=== PATIENT | male | born 1930 | race Caucasian/White ===

== ENCOUNTER 2016-10-15 17:25 | Inpatient (IN) | payer MEDICARE ==
[~2016-10-15] VITALS: Ht 182.9 cm; Wt 118.7 kg
[~2016-10-15 17:25] MED LIST: AMLO5TAB2 PO; ASPI-973 PO; CHOL3000 PO; FERR325T39 PO; INSLIS SUBQ; INSU100V7 SUBQ; LEVO88TA4 PO; MULT-1018 PO; PRAV10TA2 PO; PROB500T8 PO; ZYL100 PO
[2016-10-15 17:39] VITALS: BP 178/97; PULSE 116; RESP 20; O2SAT 93
--- NOTE | 2016-10-15 18:22 | ED.REPORT ---
HPI-Abd Pain M 40 and Over Date of Service Oct 15, 2016 ED Provider: Davi Coffey PA-C Sina is an 78-year-old male being treated for prostate cancer who presents with a chief complaint of lower abdominal pain. He states the pain began shortly after he ate his lunch today. His been increasing since then. He locates the pain in the lower quadrants. He reports a one-week history of constipation with only minimal hard stools. He attempted a water enema prior to presentation at the hospital with no result. No history of gastrointestinal disease. Admits chills. Denies vomiting, urinary frequency, urgency, dysuria, hematuria, testicular pain, fevers, melena, hematochezia. chest pain, difficulty breathing, upper respiratory symptoms. Denies history of abdominal surgeries. Nursing Notes Stated Complaint: STOMACH PAIN Chief Complaint: Male Abdominal Pain Nursing Notes Reviewed: Yes Allergies: Coded Allergies: No Known Allergies (Unverified , 09/21/15) Scheduled Allopurinol (Allopurinol) 100 Mg Tablet 100 MG PO BID Amlodipine (Amlodipine) 5 Mg Tablet 5 MG PO DAILY Aspirin (Aspirin) 81 Mg Tablet 81 MG PO DAILY Cholecalciferol (Vitamin D3) (Vitamin D3) 3,000 Unit Tablet 3,000 UNIT PO DAILY Ferrous Sulfate (Iron) 325 Mg Tablet 325 MG PO DAILY Insulin Glargine (Lantus U100 Insulin Vial) 100 Unit/Ml Vial 25 UNIT SUBQ HS Insulin Human Lispro (HumaLOG U100 Insulin Vial) 100 Unit/Ml Unit 8 UNIT SUBQ TIDAC Check blood sugars before meals and at bedtime. Use correction factor only before meals. Blood Sugar Lispro Correction: <151, 0 units; 151-175, 1 unit; 176-200, 2 units; 201-225, 3 units; 226-250, 4 units; 251-275, 5 units; 276-300 , 6 units; 301-325, 7 units; 326-350, 8 units; 351-375, 9 units; 376-400, 10 units; >400, 12 units. Levothyroxine (Levothyroxine) 88 Mcg Tablet 88 MCG PO DAILY Multivitamin (Multi Vitamin Daily) 1 Each Tablet 1 EACH PO DAILY Pravastatin (Pravastatin) 10 Mg Tablet 5 MG PO HS Probenecid (Probenecid) 500 Mg Tablet 500 MG PO BID General Time Seen by MD: 17:46 Chief Complaint Abdominal pain Sudden in Onset?: No Past Medical History Past Medical History Hypertension CVA Diverticulitis Hx of kidney stones Thyroid disease Gout Type II adult onset diabetes Past Surgical History Hemorrhoidectomy TUMT Spine surgery Sinus surgery Biceps repair Family History noncontributory Smoking History Former Smoker Social History Alcohol Use: Denies alcohol use Drug Use: Denies drug use Other Social History: Good social support, , Local resident Ambulatory Status Independent Review of Systems Review of Systems Note: Negative unless stated otherwise in history of present illness Physical Exam General: Well appearing, well developed, well nourished, no acute distress. Head: Atraumatic, normocephalic. Eyes: No scleral icterus or injection. No discharge. Vision grossly intact. ENT: Voice clear, hearing grossly intact. Respiratory: Regular rate and rhythm. Breath sounds present, clear to auscultation and equal bilaterally. No respiratory distress. No increased work of breathing, speaks in complete sentences. Cardiovascular: Regular rate and rhythm, without murmur, gallop or rub. No pedal edema. Gastrointestinal: Distended abdomen mildly tender in upper quadrants and moderately tender in lower quadrants without guarding or rebound. Bowel sounds hypoactive Skin: Warm and dry. Neurological: Grossly nonfocal. Psychological: Alert and oriented. Speech appropriate, linear and logical. Behavior appropriate. Initial Vital Signs Vital Signs (First) Date Time Temp Pulse Resp B/P Pulse Ox O2 Delivery O2 Flow Rate FiO2 10/15/16 17:39 36.2 116 20 178/97 93 Room Air Initial VS: Reviewed, Vital signs abnormal (tachycardia) Interpretation & Diagnostics Interpretation & Diagnostics: Leukocytosis at 17.2 with a left shift Mildly elevated glucose at 152 Lab Results Interpretation Result Diagram: 10/15/168 10/15/168 Test 10/15/16 18:38 10/15/16 19:50 10/15/16 20:43 White Blood Count 17.2th/mm3 (3.8-10.1) Red Blood Count 4.81mil/mm3 (4.40-5.80) Hemoglobin 14.1g/dL (13.8-17.2) Hematocrit 43.2% (41.0-50.0) Mean Corpuscular Volume 89.8fL (81-100) Mean Corpuscular Hemoglobin 29.3pg (27.0-35.0) Mean Corpuscular Hemoglobin Concent 32.6% (32.0-37.0) Red Cell Distribution Width 13.6% (12.3-15.4) Platelet Count 167bil/L (150-400) Neutrophils (%) (Auto) 83.3% (40-74) Lymphocytes (%) (Auto) 8.5% (14-46) Monocytes (%) (Auto) 7.2% (4-12) Eosinophils (%) (Auto) 0.7% (0-5) Basophils (%) (Auto) 0.1% (0-3) Sodium Level 139mEq/L (134-144) Potassium Level 4.6mEq/L (3.5-5.2) Chloride Level 99mEq/L (97-108) Carbon Dioxide Level 23mmol/L (18-29) Blood Urea Nitrogen 23mg/dL (8-27) Creatinine 1.27mg/dL (0.76-1.27) Estimat Glomerular Filtration Rate 57mL/min (>59) Glucose Level 152mg/dL (60-99) Calcium Level 9.7mg/dL (8.5-10.1) Total Bilirubin 0.4mg/dL (0.0-1.2) Aspartate Amino Transf (AST/SGOT) 31U/L (0-50) Alanine Aminotransferase (ALT/SGPT) 19U/L (0-44) Alkaline Phosphatase 73U/L (25-160) Total Protein 7.8g/dL (6.4-8.4) Albumin 4.1g/dL (3.4-5.0) Hold Urine Received (Received) Lab Results Interpretation: PROCEDURE: CT ABDOMEN AND PELVIS WITH CONTRAST (PNL-7102) INDICATIONS: lower abdominal pain and tenderness IMPRESSION: Acute sigmoid diverticulitis. No abscess. Bilateral renal cysts as before. 9 mm nonobstructing proximal left ureteral calculus. Nonobstructing bilateral nephrolithiasis. Normal appendix. Re-Eval/Medical Decision Med Decision/Clinical Course 78-year-old male with chief complaint of lower abdominal pain that began around lunchtime today. Nontoxic-appearing but significantly tender in the lower abdominal quadrants, leukocytosis of 17.5 with left shift, tachycardic. CT reveals diverticulitis without abscess. Considering that the patient is unsteady on his feet and unable to stand long enough to urinate, the family and I feel it is reasonable to pursue admission. I discussed this with the hospitalist who accepts the admission Re-Evaluation/Progress Note: Patient continues to complain of sharp abdominal pains. Consultation : Consulted With: Hospitalist Call Returned at: 20:19 Lunchroom Monitor: Accepts admit Discharge & Departure Primary Impression: Diverticulitis Diverticulitis site: large intestine Diverticulitis bleeding: without bleeding Diverticulitis complication: without perforation or abscess Qualified Code: K57.32 - Diverticulitis of large intestine without perforation or abscess without bleeding Disposition: ADMITTED TO HOSPITAL Vital Signs - All Vital Signs Date Time Temp Pulse Resp B/P Pulse Ox O2 Delivery O2 Flow Rate FiO2 10/15/16 20:28 38.6 114 18 164/87 93 Room Air 10/15/16 17:39 36.2 116 20 178/97 93 Room Air Referrals: Obie Dior MD (PCP) EDSupervising Provider for APC: Chin Hernandez MD copies to: Obie Dior MD, Seth PA-C Oct 15, 2016 18:22
[2016-10-15 19:00] LABS: BASOPHILS % (AUTO) 0.1 % (0-3); EOSINOPHILS % (AUTO) 0.7 % (0-5); MONOCYTES % (AUTO) 7.2 % (4-12); Mean Corpuscular Hemoglobin 29.3 pg (27.0-35.0); Mean Corpuscular Volume 89.8 fL (81-100); NEUTROPHILS % (AUTO) 83.3 % (40-74); Platelet Count 167 bil/L (150-400)
--- NOTE | 2016-10-15 20:05 | DRSVH ---
PROCEDURE: CT ABDOMEN AND PELVIS WITH CONTRAST (PNL-7102) INDICATIONS: lower abdominal pain and tenderness TECHNIQUE: After the administration of intravenous contrast, 5 mm thick sections acquired from the diaphragm to the symphysis. 5 mm coronal and sagittal reformats were acquired. For radiation dose reduction, the following was used: automated exposure control, adjustment of mA and/or kV according to patient felipe rothman. COMPARISON: [facility], CT, KUB - CT ([facility] 11/03/2012, 11:03. [facility], CT, ABD/PELVIS W/CON ([facility]), 08/20/2006, 16:25. FINDINGS: Image quality: Excellent. ABDOMEN: Lung bases: Lung bases are clear. Heart size is normal. Solid organs: Liver and spleen are normal in size and enhancement. Gallbladder unremarkable. Bilia ry system is non dilated. Pancreas enhances normally. No adrenal nodules. Bilateral renal cysts, so me of which demonstrate peripheral rim calcification. The largest measures 7.1 cm and the left kidney and demonstrates simple appearance. Bilateral less than 5 mm nephrolithiasis without evidence of uri nary obstruction. There is a 9 mm left proximal ureteral calculus seen in the proximal left ureter on image 40 series 2. No ureteral dilatation is seen. Peritoneum and bowel: Bowel loops demonstrate normal wall thickness and caliber. No free fluid or a ir. Numerous scattered colonic diverticula with mild long segment wall thickening in the sigmoid col on on image 67 series 2. There is mild adjacent fat stranding. Rectum decompressed. No abscess. Appen alonso appears normal. Nodes and vessels: No retroperitoneal or mesenteric adenopathy by size criteria. 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 IVC unremarkable Miscellaneous: No ventral hernias. PELVIS: Genitourinary: Bladder wall thickness is normal. Miscellaneous: No inguinal hernias or adenopathy. Bones: No suspicious bony lesions. No vertebral body compression fractures. IMPRESSION: Acute sigmoid diverticulitis. No abscess. Bilateral renal cysts as before. 9 mm nonobstructing proximal left ureteral calculus. Nonobstructing bilateral nephrolithiasis. Normal appendix. Dictated by: Lavon Leigh M.D. on 10/15/2016 at 19:53 Approved by: Lavon Leigh M.D. on 10/15/2016 at 20:05
[2016-10-15] MEDS ORDERED: Ciprofloxacin Inj 500 MG in IV Premix 1 EACH IV ONE (20:20)
[2016-10-15] MEDS ORDERED: metroNIDAZOLE Inj 500 MG in IV Premix 1 EACH IV ONE (20:20)
[2016-10-15 20:28] VITALS: BP 164/87; PULSE 114; RESP 18; O2SAT 93
[2016-10-15] MEDS ORDERED: Ciprofloxacin Inj 400 MG in IV Premix 1 EACH IV ONE (20:33)
[2016-10-15] MEDS ORDERED: INSU100I13 SUBQ (21:01)
[2016-10-15] MEDS ORDERED: POTA10TA19 PO (21:01)
[2016-10-15] MEDS ORDERED: FINA5TAB9 PO (21:01)
[2016-10-15] MEDS ORDERED: CALC1TAB91 PO (21:01)
[2016-10-15] MEDS ORDERED: LACT1CAP65 PO (21:01)
[2016-10-15] MEDS ORDERED: INSU100I18 SUBQ (21:01)
[2016-10-15] MEDS ORDERED: Levofloxacin 750 mg/150 mL D5W IV ONE (21:15)
[2016-10-15] MEDS ORDERED: Alum-Mag Hydrox-Simeth 30 mL Suspension PO PRN (21:25)
[2016-10-15] MEDS ORDERED: Polyethylene Glycol (PEG) 17 Gm Powder PO PRN (21:25)
[2016-10-15] MEDS ORDERED: Ondansetron 2 mg/mL 2 mL Inj IVPUSH PRN (21:25)
[2016-10-15 21:44] VITALS: BP 148/78; PULSE 114; RESP 18; O2SAT 91
[2016-10-15 21:44] LABS: APPEARANCE,URINE CLEAR (CLEAR,HAZY); COLOR,URINE YELLOW (YELLOW)
[2016-10-15 21:45] LABS: OCCULT BLOOD,URINE NEGATIVE (NEGATIVE); UROBILINOGEN,URINE NORMAL (NORMAL)
[2016-10-15] MEDS ORDERED: Glucose 40% Oral Gel 15 Gm Tube PO PRN (21:50)
[2016-10-15] MEDS: Insulin LISPRO 300 Unit/3 mL Inj SUBQ SCH (22:00)
[2016-10-15 22:01] VITALS: BP 157/82; PULSE 110; RESP 18; O2SAT 91
[2016-10-15 22:20] LABS: Magnesium 1.9 mg/dL (1.6-2.6); Phosphorus 3.9 mg/dL (2.5-4.9)
--- NOTE | 2016-10-15 22:40 | PCM.HPMED ---
Subjective Date of Service Oct 15, 2016 Primary Provider: Admitting Physician: Victorino Watson MD Primary Care Physician: Obie Dior MD Attending Physician: Victorino Watson MD Admit Status: From the Emergency Department Chief Complaint: abdominal pain and weakness History of Present Illness: 86 yr old male patient presented to the ER with complaint of abdominal pain and weakness. Patient reports that today after lunch with his family he began feeling weak and tired and went to take a nap, but was unable to rest due to abdominal pain and bloating. Patient states that he felt his abdomen was bloated and he needed to loosen his belt and was having abdominal pain. Patient reports that he attempted to go to the restroom twice, and had 2 very small bowel movements which neither relieved or worsened his abdominal pain. Patient denies any fever, nausea, chills, vomiting until he arrived in the ER. Patient states that while in the ER he began feeling feverish, nauseous and had worsening pain. Patient reports that he did feel quite weak while at home. Patient states that he was seen in the urgent care prior to coming to the ER. Patient reports lower quadrant abdominal pain that he describes a sharp without radiation. Patient also reports dysuria but denies any hematuria or increased frequency of urination. Patient denies any hematochezia or melena. Patient denies any chest pain, shortness of breath, headache or chills. Patient denies any recent history of constipation or diarrhea. States he has never experienced anything like this previously. While in the ER patient had a temperature 38.6, pulse 114, respiratory rate of 18, blood pressure 164/87, pulse ox 93 on room air. In the ER labs were drawn, patient had a WBC of 17.2 Review of Systems: A comprehensive review of systems was conducted with the patient and found to be negative except as above in the History of Present Illness. Allergies Coded Allergies: No Known Allergies (Unverified , 09/21/15) Home Medications Allopurinol 100 mg a day Amlodipine 5 mg a day Finasteride 5 mg a day Levothyroxine 0.088 mg a day Potassium citrate 10 mEq, 3 tablets twice a day Pravastatin 10 mg once a day Probenecid 500 mg, 2 tablets twice a day Aspirin 81 mg daily Senior multivitamin one tablet daily Vitamin D3 3000 international units daily Erich-Citrate probiotic Insulin Humalog 0-5 units as needed Lantus 5-10 units at bedtime PMH Diabetes mellitus type II Prostate cancer Kidney stones Hypertension Hyperlipidemia Peripheral neuropathy TIA Surgical History Hemorrhoidectomy Lithotripsy C Sinus surgery Laminectomy Discectomy Bladder stone removal TURP Social History Hx Alcohol Use: No Hx Substance Use: No Hx Tobacco Use: Yes Smoking Status: Former Smoker (quit over 60 years ago) Living Arrangement: with Family Exam Vital Signs Vital Sign - Last Date Time Temp Pulse Resp B/P Pulse Ox O2 Delivery O2 Flow Rate FiO2 10/15/16 21:44 38.9 114 18 148/78 91 10/15/16 20:28 Room Air Exam General: No acute distress, well-developed, well-nourished, appropriately interactive HEENT: Normocephalic, atraumatic. External ears without defect. Pupils equal, round, and reactive to light and accommodation. Moist conjunctivae. Oropharynx with moist mucosa. Neck: Supple with full range of motion.No lymphadenopathy Cardiovascular: Tachycardic with regular rhythm and no murmurs, rubs, or gallops appreciated Pulmonary: Clear to auscultation bilaterally with no crackles, wheezes, or rhonchi. Normal respiratory effort with no use of accessory muscles. Abdomen: Tenderness to palpation of left upper and lower quadrant, mild tenderness nash-umbilical region. Bowel tones present. Soft,nondistended. Extremities: Trace to 1+ pitting edema bilateral lower extremities to mid koch. No clubbing, cyanosis appreciated. Skin: Normal temperature, turgor, and texture; no rash, ulcers, or subcutaneous nodules appreciated. Psychiatric: Normal mood and affect. Alert and oriented to person, place, and time. Lab and Diagnostics Result Diagram: 10/15/16183710/15/161837 X-Rays, CTs and MRIs PROCEDURE: CT ABDOMEN AND PELVIS WITH CONTRAST (PNL-7102) INDICATIONS: lower abdominal pain and tenderness TECHNIQUE: After the administration of intravenous contrast, 5 mm thick sections acquired from the diaphragm to the symphysis. 5 mm coronal and sagittal reformats were acquired. For radiation dose reduction, the following was used: automated exposure control, adjustment of mA and/or kV according to patient size. COMPARISON: [facility], CT, KUB - CT ([facility]), 11/03/2012, 11:03. [facility], CT, ABD/PELVIS W/CON ([facility]), 08/20/2006, 16:25. FINDINGS: Image quality: Excellent. ABDOMEN: Lung bases: Lung bases are clear. Heart size is normal. Solid organs: Liver and spleen are normal in size and enhancement. Gallbladder unremarkable. Biliary system is non dilated. Pancreas enhances normally. No adrenal nodules. Bilateral renal cysts, some of which demonstrate peripheral rim calcification. The largest measures 7.1 cm and the left kidney and demonstrates simple appearance. Bilateral less than 5 mm nephrolithiasis without evidence of urinary obstruction. There is a 9 mm left proximal ureteral calculus seen in the proximal left ureter on image 40 series 2. No ureteral dilatation is seen. Peritoneum and bowel: Bowel loops demonstrate normal wall thickness and caliber. No free fluid or air. Numerous scattered colonic diverticula with mild long segment wall thickening in the sigmoid colon on image 67 series 2. There is mild adjacent fat stranding. Rectum decompressed. No abscess. Appendix appears normal. Nodes and vessels: No retroperitoneal or mesenteric adenopathy by size criteria. 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 IVC unremarkable Miscellaneous: No ventral hernias. PELVIS: Genitourinary: Bladder wall thickness is normal. Miscellaneous: No inguinal hernias or adenopathy. Bones: No suspicious bony lesions. No vertebral body compression fractures. IMPRESSION: Acute sigmoid diverticulitis. No abscess. Bilateral renal cysts as before. 9 mm nonobstructing proximal left ureteral calculus. Nonobstructing bilateral nephrolithiasis. Normal appendix. Dictated by: Lavon Leigh M.D. on 10/15/2016 at 19:53 Approved by: Lavon Leigh M.D. on 10/15/2016 at 20:05 Assessment & Plan Patient is an 86-year-old male with a history of type II diabetes insulin- dependent and prostate cancer who presented to the ER with complaint of abdominal pain and weakness who is receiving treatment for acute sigmoid diverticulitis. Acute sepsis secondary to sigmoid diverticulitis, present on admission, ongoing -Meets criteria with WBC 17.2, T 38.9, HR 116 -Treatment plan as below Acute sigmoid diverticulitis, present on admission, ongoing -CT abdomen done in ER demonstrating "Acute sigmoid diverticulitis. No abscess. " -Given that there is no evidence of abscess, we will attempt to treat this medically, no surgical consult at this time. -Leukocytosis of 17.2, pmns 83.8, -Pt started on Levaquin and Flagyl in the ER, will continue with these medications -Pain medication available for patient -NPO to allow for bowel rest -IVF NS 100mls/hr, if lactic acid increases, will increase rate to 125mls/hr -UA ordered given patient's report of dysuria -Lactic acid elevated at 3.1, will trend q 2 hours until normalized -Blood cultures pending -Patient will require follow-up colonoscopy 6-8 weeks after resolution of this current episode. -Monitor with daily labs Diabetes mellitus type 2 insulin dependent, present on admission, ongoing -Will hold home medications -Pt to start on low dose correctional insulin -When not NPO, will start pt on diabetic diet -Regular BG checks -Continue to monitor Prostate cancer, ongoing -Diagnosed in 02/2016 -Urologist is Dr Byers -Given history of cancer,and hypercoagulable state, DVT prophylaxis with heparin Chronic hypertension,present on admission, ongoing -We will restart patient's home medications -Continue to monitor PCP: Dr Dior CODE: Compressions and Cardioversion OK. DO NOT INTUBATE. DVT: Heparin q 8hrs Patient is admitted under inpatient status with expected length of stay greater than 2 midnights due to severity of presenting symptoms, risk of adverse event, and complexity of treatment plan. Pain Evaluation: Adequate Pain Control VTE Prophylaxis: Sub-Q Heparin (Unfractionated) Resuscitation Status: Limited Interventions Limited Interventions: Compressions, Cardioversion/Defibrillation Attending Statement The patient was seen and examined together with Dr. Austin on 10/15 and I agree with the history, exam and plan as outlined in the note above. copies to: Obie Dior MD, Tara L DO Oct 15, 2016 21:52 Victorino Watson MD Oct 15, 2016 23:53
[2016-10-15] MEDS: HYDROmorphone 1 mg/mL Inj IVPUSH PRN (22:52)
--- NOTE | 2016-10-15 23:00 | NUR ---
Admission/Pain Pt admitted from ER arriving at 2150 via bed transport. Alert and oriented x3 with some confusion noted. IV Levaquin infusing without noted side effects. IV to right hand patent, without redness, and pt denies discomfort to site. Denies shortness of breath, chest pain, n/v/d, and gi upset. Family present to assist with admission interview questions. MS and Tylenol given for abd pain in the ER. Pt stated his 04/03 abd pain was unrelieved, so notified and new order IV Dilaudid given. "It's getting better." No jerking or twitching movements noted after Dilaudid administered. Pt appears to be sleeping at this time. Will continue to monitor for changes to health status. Care ongoing.
[2016-10-15] MEDS: 0.9% Sodium Chloride 1,000 ML IV SCH (23:29)
[2016-10-15] MEDS: Heparin 5,000 Unit/mL Inj SUBQ SCH ×2 (23:46)
[2016-10-16 05:07] VITALS: BP 115/69; PULSE 79; RESP 17; O2SAT 96
[2016-10-16 07:16] LABS: BASOPHILS % (AUTO) 0.2 % (0-3); EOSINOPHILS % (AUTO) 0.2 % (0-5); MONOCYTES % (AUTO) 8.9 % (4-12); Mean Corpuscular Hemoglobin 29.7 pg (27.0-35.0); Mean Corpuscular Volume 90.9 fL (81-100); NEUTROPHILS % (AUTO) 77.2 % (40-74); Platelet Count 139 bil/L (150-400)
[2016-10-16] MEDS: Insulin LISPRO 300 Unit/3 mL Inj SUBQ SCH ×4 (08:00→21:55)
[2016-10-16 08:30] VITALS: O2SAT 93
[2016-10-16] MEDS: Heparin 5,000 Unit/mL Inj SUBQ SCH ×5 (08:30→23:48)
[2016-10-16] MEDS: 0.9% Sodium Chloride 1,000 ML IV SCH ×2 (08:35→17:42)
[2016-10-16] MEDS: metroNIDAZOLE Inj 500 MG in IV Premix 1 EACH IV SCH ×2 (08:37→20:31)
--- NOTE | 2016-10-16 10:50 | NUR ---
Activity Pt up to bathroom for BM with lots of flatus. x1 assist with walker to bathroom, tolerated well. pt states abdomen feels "better" after bowel movement and gas. RUQ chief operator lock tender to palpation. advanced to clears by MD, to monitor.
--- NOTE | 2016-10-16 12:08 | PCM.PNMED ---
Subjective Date of Service Oct 16, 2016 Subjective patient still in pain 6 out of 10 generally feels better today than yesterday no n/v has appetite Exam Vital Signs Vital Sign - Last Date Time Temp Pulse Resp B/P Pulse Ox O2 Delivery O2 Flow Rate FiO2 10/16/16 08:30 93 Room Air 10/16/16 05:07 36.6 79 17 115/69 Intake and Output 10/15/16 10/15/16 10/16/16 Cumulative From/Thru 15:00 23:00 07:00 10/15/16 17:39 - 10/16/16 06:24 Intake Total 700 ml 700 ml Balance 700 ml 700 ml Intake Oral 0 ml 0 ml IV Total 700 ml 700 ml # Voids 3 3 Exam NAD, comfortably laying down on the bed no JVD, MMM, no LAD RRR, nl s1, s2 no mrg CTAB, no w,c S,ND, mild left lower quadrant tenderness, hypoactive BS+, no rTD/guarding warm, no edema, pulses 2/2 IVs and Medications Medications Reviewed: Medications were reviewed in detail Lab and Diagnostics Result Diagram: 10/16/1664410/16/1645 X-Rays, CTs and MRIs PROCEDURE: CT ABDOMEN AND PELVIS WITH CONTRAST ([id number]) INDICATIONS: lower abdominal pain and tenderness TECHNIQUE: After the administration of intravenous contrast, 5 mm thick sections acquired from the diaphragm to the symphysis. 5 mm coronal and sagittal reformats were acquired. For radiation dose reduction, the following was used: automated exposure control, adjustment of mA and/or kV according to patient size. COMPARISON: [facility], CT, KUB - CT ([facility]), 11/03/2012, 11:03. [facility], CT, ABD/PELVIS W/CON ([facility]), 08/20/2006, 16:25. FINDINGS: Image quality: Excellent. ABDOMEN: Lung bases: Lung bases are clear. Heart size is normal. Solid organs: Liver and spleen are normal in size and enhancement. Gallbladder unremarkable. Biliary system is non dilated. Pancreas enhances normally. No adrenal nodules. Bilateral renal cysts, some of which demonstrate peripheral rim calcification. The largest measures 7.1 cm and the left kidney and demonstrates simple appearance. Bilateral less than 5 mm nephrolithiasis without evidence of urinary obstruction. There is a 9 mm left proximal ureteral calculus seen in the proximal left ureter on image 40 series 2. No ureteral dilatation is seen. Peritoneum and bowel: Bowel loops demonstrate normal wall thickness and caliber. No free fluid or air. Numerous scattered colonic diverticula with mild long segment wall thickening in the sigmoid colon on image 67 series 2. There is mild adjacent fat stranding. Rectum decompressed. No abscess. Appendix appears normal. Nodes and vessels: No retroperitoneal or mesenteric adenopathy by size criteria. 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 IVC unremarkable Miscellaneous: No ventral hernias. PELVIS: Genitourinary: Bladder wall thickness is normal. Miscellaneous: No inguinal hernias or adenopathy. Bones: No suspicious bony lesions. No vertebral body compression fractures. IMPRESSION: Acute sigmoid diverticulitis. No abscess. Bilateral renal cysts as before. 9 mm nonobstructing proximal left ureteral calculus. Nonobstructing bilateral nephrolithiasis. Normal appendix. Dictated by: Lavon Leigh M.D. on 10/15/2016 at 19:53 Approved by: Lavon Leigh M.D. on 10/15/2016 at 20:05 Assessment & Plan Patient is an 86-year-old male with a history of type II diabetes insulin- dependent and prostate cancer who presented to the ER with complaint of abdominal pain and weakness who is receiving treatment for acute sigmoid diverticulitis. Acute sepsis secondary to sigmoid diverticulitis, present on admission, ongoing -Meets criteria with WBC 17.2, T 38.9, HR 116 -Treatment plan as below Acute sigmoid diverticulitis, present on admission, ongoing -CT abdomen done in ER demonstrating "Acute sigmoid diverticulitis. No abscess. " -Given that there is no evidence of abscess, we will attempt to treat this medically, no surgical consult at this time. -Leukocytosis of 17.2, pmns 83.8, -Pt started on Levaquin and Flagyl in the ER, will continue with these medications -Pain medication available for patient -NPO to allow for bowel rest -IVF NS 100mls/hr, if lactic acid increases, will increase rate to 125mls/hr -UA ordered given patient's report of dysuria -Lactic acid elevated at 3.1, will trend q 2 hours until normalized -Blood cultures pending -Patient will require follow-up colonoscopy 6-8 weeks after resolution of this current episode. -Monitor with daily labs Diabetes mellitus type 2 insulin dependent, present on admission, ongoing -Will hold home medications -Pt to start on low dose correctional insulin -When not NPO, will start pt on diabetic diet -Regular BG checks -Continue to monitor Prostate cancer, ongoing -Diagnosed in 02/2016 -Urologist is Dr Byers -Given history of cancer,and hypercoagulable state, DVT prophylaxis with heparin Chronic hypertension,present on admission, ongoing -We will restart patient's home medications -Continue to monitor PCP: Dr Dior CODE: Compressions and Cardioversion OK. DO NOT INTUBATE. DVT: Heparin q 8hrs dispo: continue current medical treatment, likely need PT tomorrow given baseline weakness, anticipate d/c in 1-2days. diet:start with clear, advance as tolerate VTE Prophylaxis: Sub-Q Heparin (Unfractionated) Resuscitation Status: Limited Interventions Limited Interventions: Compressions, Cardioversion/Defibrillation Time spent 35 minutes Nancy Martinez MD Oct 16, 2016 12:08
--- NOTE | 2016-10-16 14:30 | NUR ---
Social Work Initial Assessment: SW met with patient at bedside to discuss discharge plan. Patient is a 86 year old male admitted on 10/15/16 for diverticulitis. Patient payer as Medicare and [employer]. Patient has no [employer] disability nor [employer] benefits. Patient PCP as MD Dior. Patient resides in [facility] with and daughter resides next door. patient resides in a 2 story home with 17 steps inside of home and 4 to enter. Patient states bed available if needed on main floor. Patient pharmacy of choice as [facility]. Patient has no previous HHC or SNF history. Patient has AD and states copy provided. Patient has a walker and cane for use at home. Patient independent with needs prior to admit. Patient and family states having no identified discharge needs at this time. SW will continue to follow. PLAN: Home with and family support, pending clinical course. Patient denied any discharge needs at this time. SW will continue to follow. Sigrid ALEXANDRA Addendum: 10/16/16 at 1434 by DANA MENDEZ Amended: Links added.
[2016-10-16 15:00] VITALS: BP 142/70; PULSE 77; RESP 20; O2SAT 92
[2016-10-16 18:15] VITALS: BP 147/74; PULSE 88; RESP 20; O2SAT 93
[2016-10-16] MEDS: levoFLOXacin Inj 750 MG in IV Premix 1 EACH IV SCH (21:24)
[2016-10-16 22:56] VITALS: BP 134/71; PULSE 76; RESP 18; O2SAT 94
[2016-10-17] VITALS (8 sets, daily range): BP systolic 145–176; BP diastolic 72–101; PULSE 78–89; RESP 14–18; O2SAT 94–96
[2016-10-17] MEDS: Heparin 5,000 Unit/mL Inj SUBQ SCH ×3 (00:30→16:26)
[2016-10-17] MEDS: HYDROmorphone 1 mg/mL Inj IVPUSH PRN ×3 (00:35→22:23)
[2016-10-17] MEDS: 0.9% Sodium Chloride 1,000 ML IV SCH ×2 (06:03→16:25)
--- NOTE | 2016-10-17 06:17 | NUR ---
Shift Note Assumed pt care at 1900, abdominal pain managed, with PRN dilaudid, effective per pt report, pt continues with IVF and intermittent IV ABO.
[2016-10-17] MEDS: Insulin LISPRO 300 Unit/3 mL Inj SUBQ SCH ×4 (07:37→22:00)
[2016-10-17 08:24] LABS: BASOPHILS % (AUTO) 0.1 % (0-3); EOSINOPHILS % (AUTO) 0.8 % (0-5); MONOCYTES % (AUTO) 7.5 % (4-12); Mean Corpuscular Hemoglobin 29.2 pg (27.0-35.0); Mean Corpuscular Volume 90.8 fL (81-100); NEUTROPHILS % (AUTO) 79.5 % (40-74); Platelet Count 118 bil/L (150-400)
[2016-10-17] MEDS: metroNIDAZOLE Inj 500 MG in IV Premix 1 EACH IV SCH ×2 (08:34→20:21)
[2016-10-17 09:20] LABS: Magnesium 1.8 mg/dL (1.6-2.6); Phosphorus 2.1 mg/dL (2.5-4.9)
--- NOTE | 2016-10-17 10:57 | NUR ---
Mentation Patient is alert and oriented X3. Able to make needs known. Doctor at bed side. patient having loose stoolsX 2 so far and is on ABO Flagyl. Doctor aware and orders to monitor loose stools. New orders for PT Evaluation. stable blood sugar before breakfast. patient received IV ABO Flagyl as ordered this morning. FWW to go to the bathroom. uses call light to make needs known. Call light with in reach for safety. IV access to right arm, dressing clean dry and intact. no sign and symptoms of infection noted at the dressing site. spouse at bed side. soft diet tolerated well and patient ate 100% breakfast. Denies pain but mild discomfort to abdomen. stable mood. Room air and stable oxygenation. Continue to monitor vital signs, loose stools, pain, and safety.
--- NOTE | 2016-10-17 11:43 | PCM.PNMED ---
Subjective Date of Service Oct 17, 2016 Subjective Continue medically better than yesterday Having loose stools multiple times Exam Vital Signs Vital Sign - Last Date Time Temp Pulse Resp B/P Pulse Ox O2 Delivery O2 Flow Rate FiO2 10/17/16 10:11 36.9 81 145/72 94 10/17/16 10:00 Supplement Oxygen 10/17/16 07:22 15 Intake and Output 10/16/16 10/16/16 10/17/16 Cumulative From/Thru 15:00 23:00 07:00 10/15/16 17:39 - 10/17/16 06:00 Intake Total 1125 ml 938 ml 2763 ml Output Total 600 ml 600 ml Balance 1125 ml 338 ml 2163 ml Intake Oral 0 ml IV Total 1125 ml 938 ml 2763 ml Output Urine Total 600 ml 600 ml # Voids 3 Exam NAD, comfortably laying down on the bed no JVD, MMM, no LAD RRR, nl s1, s2 no mrg CTAB, no w,c S,ND, mild left lower quadrant tenderness, hypoactive BS+, no rTD/guarding warm, no edema, pulses 2/2 IVs and Medications Medications Reviewed: Medications were reviewed in detail Lab and Diagnostics Result Diagram: 10/17/1680410/17/16 08 X-Rays, CTs and MRIs PROCEDURE: CT ABDOMEN AND PELVIS WITH CONTRAST ([id number]) INDICATIONS: lower abdominal pain and tenderness TECHNIQUE: After the administration of intravenous contrast, 5 mm thick sections acquired from the diaphragm to the symphysis. 5 mm coronal and sagittal reformats were acquired. For radiation dose reduction, the following was used: automated exposure control, adjustment of mA and/or kV according to patient size. COMPARISON: [facility], CT, KUB - CT ([facility]), 11/03/2012, 11:03. [facility], CT, ABD/PELVIS W/CON ([facility]), 08/20/2006, 16:25. FINDINGS: Image quality: Excellent. ABDOMEN: Lung bases: Lung bases are clear. Heart size is normal. Solid organs: Liver and spleen are normal in size and enhancement. Gallbladder unremarkable. Biliary system is non dilated. Pancreas enhances normally. No adrenal nodules. Bilateral renal cysts, some of which demonstrate peripheral rim calcification. The largest measures 7.1 cm and the left kidney and demonstrates simple appearance. Bilateral less than 5 mm nephrolithiasis without evidence of urinary obstruction. There is a 9 mm left proximal ureteral calculus seen in the proximal left ureter on image 40 series 2. No ureteral dilatation is seen. Peritoneum and bowel: Bowel loops demonstrate normal wall thickness and caliber. No free fluid or air. Numerous scattered colonic diverticula with mild long segment wall thickening in the sigmoid colon on image 67 series 2. There is mild adjacent fat stranding. Rectum decompressed. No abscess. Appendix appears normal. Nodes and vessels: No retroperitoneal or mesenteric adenopathy by size criteria. 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 IVC unremarkable Miscellaneous: No ventral hernias. PELVIS: Genitourinary: Bladder wall thickness is normal. Miscellaneous: No inguinal hernias or adenopathy. Bones: No suspicious bony lesions. No vertebral body compression fractures. IMPRESSION: Acute sigmoid diverticulitis. No abscess. Bilateral renal cysts as before. 9 mm nonobstructing proximal left ureteral calculus. Nonobstructing bilateral nephrolithiasis. Normal appendix. Dictated by: Lavon Leigh M.D. on 10/15/2016 at 19:53 Approved by: Lavon Leigh M.D. on 10/15/2016 at 20:05 Assessment & Plan Patient is an 86-year-old male with a history of type II diabetes insulin- dependent and prostate cancer who presented to the ER with complaint of abdominal pain and weakness who is receiving treatment for acute sigmoid diverticulitis. Acute sepsis secondary to sigmoid diverticulitis, present on admission, ongoing -Meets criteria with WBC 17.2, T 38.9, HR 116 -Treatment plan as below Acute sigmoid diverticulitis, present on admission, today patient is clinically improving on antibiotics -CT abdomen done in ER demonstrating "Acute sigmoid diverticulitis. No abscess. " -Given that there is no evidence of abscess, we will attempt to treat this medically, no surgical consult at this time. -Leukocytosis of 17.2, pmns 83.8, -Pt started on Levaquin and Flagyl in the ER, will continue with these medications -Pain medication available for patient -IVF NS 100mls/hr -UA ordered given patient's report of dysuria -Blood cultures pending -Patient will require follow-up colonoscopy 6-8 weeks after resolution of this current episode. -Monitor with daily labs Diabetes mellitus type 2 insulin dependent, present on admission, ongoing -Will hold home medications -Pt to start on low dose correctional insulin -When not NPO, will start pt on diabetic diet -Regular BG checks -Continue to monitor Prostate cancer, ongoing -Diagnosed in 02/2016 -Urologist is Dr Byers -Given history of cancer,and hypercoagulable state, DVT prophylaxis with heparin Chronic hypertension,present on admission, ongoing -We will restart patient's home medications -Continue to monitor PCP: Dr Dior CODE: Compressions and Cardioversion OK. DO NOT INTUBATE. DVT: Heparin q 8hrs dispo: continue current medical treatment, PT today given baseline weakness, anticipate d/c in 1-2days. diet:start with clear, advance as tolerate VTE Prophylaxis: Sub-Q Heparin (Unfractionated) Resuscitation Status: Limited Interventions Limited Interventions: Compressions, Cardioversion/Defibrillation Time spent 35 minutes Nancy Martinez MD Oct 17, 2016 11:43
--- NOTE | 2016-10-17 16:07 | NUR ---
Evaluation completed. Please go to "Notes" then click on "Assessments and Notes" (bottom left corner of screen). Then select appropriate discipline tab on top of screen.
--- NOTE | 2016-10-17 16:53 | NUR ---
New orders Paged doctor r/t loose stools x4 this shift. New orders for stool sample collection and stop NS. Po intake 693 this shift. Encourage PO fluids.
[2016-10-17] MEDS: levoFLOXacin Inj 750 MG in IV Premix 1 EACH IV SCH (20:57)
[2016-10-18] MEDS: Heparin 5,000 Unit/mL Inj SUBQ SCH ×3 (00:32→17:20)
[2016-10-18 02:08] VITALS: BP 173/91; PULSE 81; RESP 16; O2SAT 97
[2016-10-18] MEDS: HYDROmorphone 1 mg/mL Inj IVPUSH PRN (02:17)
[2016-10-18 02:19] VITALS: BP 153/89; PULSE 78
--- NOTE | 2016-10-18 06:38 | NUR ---
Shift Note Assumed pt care at 1900, elevated systolic Bp's tonight, see vitals grid, @0600, Bp at 175/78, pt asymptomatic, am scheduled 5mg Norvasc given at 0600, continue to monitor.
[2016-10-18 06:46] VITALS: BP 175/78; PULSE 80; RESP 20; O2SAT 96
[2016-10-18 07:39] LABS: BASOPHILS % (AUTO) 0.1 % (0-3); EOSINOPHILS % (AUTO) 1.5 % (0-5); MONOCYTES % (AUTO) 5.8 % (4-12); Mean Corpuscular Hemoglobin 29.6 pg (27.0-35.0); Mean Corpuscular Volume 90.5 fL (81-100); NEUTROPHILS % (AUTO) 80.5 % (40-74); Platelet Count 136 bil/L (150-400)
[2016-10-18 08:00] VITALS: BP 157/71; PULSE 79; RESP 18; O2SAT 94
[2016-10-18 08:11] LABS: Magnesium 1.8 mg/dL (1.6-2.6); Phosphorus 2.1 mg/dL (2.5-4.9)
[2016-10-18] MEDS: metroNIDAZOLE Inj 500 MG in IV Premix 1 EACH IV SCH ×2 (08:11→20:18)
[2016-10-18] MEDS: Insulin LISPRO 300 Unit/3 mL Inj SUBQ SCH ×4 (08:14→22:00)
--- NOTE | 2016-10-18 10:38 | NUR ---
Ambulate w/Nsg Pt is released to ambulate w/nsg w/FWW 2-3x/day as pt tolerates. PT will cont to see 2x/week for continued progression of bed mobility and stair navigation.
--- NOTE | 2016-10-18 11:41 | PCM.PNMED ---
Subjective Date of Service Oct 18, 2016 Subjective Patient feeling much better today tolerated diet well Able to walk on the hallway, PT recommend d/c home still having watery diarrhea, multiple times per day Exam Vital Signs Vital Sign - Last Date Time Temp Pulse Resp B/P Pulse Ox O2 Delivery O2 Flow Rate FiO2 10/18/16 10:30 Room Air 10/18/16 06:46 36.5 80 20 175/78 96 Intake and Output 10/17/16 10/17/16 10/18/16 Cumulative From/Thru 15:00 23:00 07:00 10/15/16 17:39 - 10/18/16 04:48 Intake Total 1845 ml 400 ml 5008 ml Output Total 650 ml 850 ml 2100 ml Balance 1195 ml -450 ml 2908 ml Intake Oral 693 ml 400 ml 1093 ml IV Total 1152 ml 3915 ml Output Urine Total 650 ml 850 ml 2100 ml # Voids 3 # Bowel Movements 2 2 Exam NAD, comfortably laying down on the bed no JVD, MMM, no LAD RRR, nl s1, s2 no mrg CTAB, no w,c S,ND,mild LLQ tenderness,normoactive BS+ warm, no edema, pulses 2/2 IVs and Medications Medications Reviewed: Medications were reviewed in detail Lab and Diagnostics Result Diagram: 10/18/1672410/18/16724 X-Rays, CTs and MRIs PROCEDURE: CT ABDOMEN AND PELVIS WITH CONTRAST ([id number]) INDICATIONS: lower abdominal pain and tenderness TECHNIQUE: After the administration of intravenous contrast, 5 mm thick sections acquired from the diaphragm to the symphysis. 5 mm coronal and sagittal reformats were acquired. For radiation dose reduction, the following was used: automated exposure control, adjustment of mA and/or kV according to patient size. COMPARISON: [facility], CT, KUB - CT ([facility]), 11/03/2012, 11:03. [facility], CT, ABD/PELVIS W/CON ([facility]), 08/20/2006, 16:25. FINDINGS: Image quality: Excellent. ABDOMEN: Lung bases: Lung bases are clear. Heart size is normal. Solid organs: Liver and spleen are normal in size and enhancement. Gallbladder unremarkable. Biliary system is non dilated. Pancreas enhances normally. No adrenal nodules. Bilateral renal cysts, some of which demonstrate peripheral rim calcification. The largest measures 7.1 cm and the left kidney and demonstrates simple appearance. Bilateral less than 5 mm nephrolithiasis without evidence of urinary obstruction. There is a 9 mm left proximal ureteral calculus seen in the proximal left ureter on image 40 series 2. No ureteral dilatation is seen. Peritoneum and bowel: Bowel loops demonstrate normal wall thickness and caliber. No free fluid or air. Numerous scattered colonic diverticula with mild long segment wall thickening in the sigmoid colon on image 67 series 2. There is mild adjacent fat stranding. Rectum decompressed. No abscess. Appendix appears normal. Nodes and vessels: No retroperitoneal or mesenteric adenopathy by size criteria. 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 IVC unremarkable Miscellaneous: No ventral hernias. PELVIS: Genitourinary: Bladder wall thickness is normal. Miscellaneous: No inguinal hernias or adenopathy. Bones: No suspicious bony lesions. No vertebral body compression fractures. IMPRESSION: Acute sigmoid diverticulitis. No abscess. Bilateral renal cysts as before. 9 mm nonobstructing proximal left ureteral calculus. Nonobstructing bilateral nephrolithiasis. Normal appendix. Dictated by: Lavon Leigh M.D. on 10/15/2016 at 19:53 Approved by: Lavon Leigh M.D. on 10/15/2016 at 20:05 Assessment & Plan Patient is an 86-year-old male with a history of type II diabetes insulin- dependent and prostate cancer who presented to the ER with complaint of abdominal pain and weakness who is receiving treatment for acute sigmoid diverticulitis. Acute sepsis secondary to sigmoid diverticulitis, present on admission, ongoing -Meets criteria with WBC 17.2, T 38.9, HR 116 -Treatment plan as below Acute sigmoid diverticulitis, present on admission, today patient is clinically improving on antibiotics -CT abdomen done in ER demonstrating "Acute sigmoid diverticulitis. No abscess. " -Given that there is no evidence of abscess, we will attempt to treat this medically, no surgical consult at this time. -Leukocytosis of 17.2, pmns 83.8, -Pt started on Levaquin and Flagyl in the ER, will continue with these medications -Pain medication available for patient -IVF NS 100mls/hr -UA ordered given patient's report of dysuria -Blood cultures pending -Patient will require follow-up colonoscopy 6-8 weeks after resolution of this current episode. -Monitor with daily labs Diabetes mellitus type 2 insulin dependent, present on admission, ongoing -Will hold home medications -Pt to start on low dose correctional insulin -When not NPO, will start pt on diabetic diet -Regular BG checks -Continue to monitor Prostate cancer, ongoing -Diagnosed in 02/2016 -Urologist is Dr Byers -Given history of cancer,and hypercoagulable state, DVT prophylaxis with heparin Chronic hypertension,present on admission, ongoing -We will restart patient's home medications -Continue to monitor PCP: Dr Dior CODE: Compressions and Cardioversion OK. DO NOT INTUBATE. DVT: Heparin q 8hrs dispo: likely home tomorrow, anticipate d/c tomorrow. diet:advance as tolerate VTE Prophylaxis: Sub-Q Heparin (Unfractionated) Resuscitation Status: Limited Interventions Limited Interventions: Compressions, Cardioversion/Defibrillation Time spent 35min Nancy Martinez MD Oct 18, 2016 11:41
--- NOTE | 2016-10-18 11:48 | NUR ---
Social Work Note - Continued d/c planning JACQUARD TWINE POLISHER OPERATOR completed EMR review: Pt is day 3 Inpt for IV abx treating diverticulitis. Pt and MD anticipate 1-2 more days in the hospital. JACQUARD TWINE POLISHER OPERATOR met with pt - pt's and daughter also in the room. PT recommends HH or outpt PT at discharge. Pt and family agree that Home Health may be easier as pt will not be leaving the home for several weeks. They have not used home health in the past. JACQUARD TWINE POLISHER OPERATOR provided choices list - no preference for agency. JACQUARD TWINE POLISHER OPERATOR consulted Vendor calendar and identified [facility] as balloon dipper. JACQUARD TWINE POLISHER OPERATOR called and left a message for [facility] requesting RN PT. Provided access and F2F in folder. Plan: Home with in POV - [facility] for RN PT. SHILO Haro
--- NOTE | 2016-10-18 15:12 | NUR ---
Social work note - Home Health MORTGAGE ASSISTANT received CM Ann [facility] can open with pt on Friday for RN and PT. Iqra Fabian, FLORIST
[2016-10-18 15:28] VITALS: BP 154/69; PULSE 80; RESP 18; O2SAT 94
--- NOTE | 2016-10-18 16:22 | NUR ---
Activity Patient ambulated in the hallway with PT this morning, steady gait. We will walk him at least 3 times/day. Appetite is good. Patient anticipating and agreeable for discharge plan tomorrow. Will continue to monitor.
[2016-10-18 20:30] VITALS: BP 145/88; PULSE 87; RESP 17; O2SAT 95
[2016-10-18] MEDS: levoFLOXacin Inj 750 MG in IV Premix 1 EACH IV SCH (21:00)
[2016-10-19] MEDS: Heparin 5,000 Unit/mL Inj SUBQ SCH ×2 (00:05→09:11)
[2016-10-19 00:30] VITALS: BP 144/84; PULSE 88; RESP 17; O2SAT 95
[2016-10-19 03:05] VITALS: BP 149/73; PULSE 89; RESP 20; O2SAT 97
[2016-10-19 06:18] LABS: BASOPHILS % (AUTO) 0.1 % (0-3); Mean Corpuscular Hemoglobin 29.4 pg (27.0-35.0)
[2016-10-19 06:20] LABS: EOSINOPHILS % (AUTO) 3.9 % (0-5); MONOCYTES % (AUTO) 5.8 % (4-12); Mean Corpuscular Volume 84.7 fL (81-100); NEUTROPHILS % (AUTO) 71.7 % (40-74); Platelet Count 185 bil/L (150-400)
[2016-10-19 06:36] LABS: Magnesium 1.9 mg/dL (1.6-2.6); Phosphorus 2.4 mg/dL (2.5-4.9)
--- NOTE | 2016-10-19 08:30 | NUR ---
BURT signed. NASRIN Cohn
[2016-10-19] MEDS ORDERED: 0.9% Sodium Chloride 100 ML ONE (08:55)
[2016-10-19 09:05] VITALS: BP 154/78; PULSE 82; RESP 16; O2SAT 97
[2016-10-19] MEDS: Insulin LISPRO 300 Unit/3 mL Inj SUBQ SCH (09:10)
[2016-10-19] MEDS: metroNIDAZOLE Inj 500 MG in IV Premix 1 EACH IV SCH (09:10)
[2016-10-19] MEDS ORDERED: METR500T PO ×2 (10:28→11:33)
[2016-10-19] MEDS ORDERED: LEVO500T16 PO (10:28)
--- NOTE | 2016-10-19 10:31 | PCM.DIMED ---
Discharge Instructions Date of Service Oct 19, 2016 Dates of Hospitalization Oct 15, 2016 at 20:59 Discharge Diagnosis Discharge Diagnosis sigmoid diverticulitis Medication Instructions take Levofloxacin, metronidazole for 10more days Diet Other (slowly advance your diet) Activity No restrictions Call your provider Excessive diarrhea Patient Instructions You were hospitalized with diverticulitis, treated with antibiotics, responded well. Please follow medicine instruction as above Please monitor stools, try stool softners if your are constipated Follow-up plan Please follow up with your doctor in 2weeks Follow-up Provider: Obie Dior MD Follow-up with PCP in: 2 weeks Nancy Martinez MD Oct 19, 2016 10:31
--- NOTE | 2016-10-19 11:47 | NUR ---
Social Work-discharge: Data:EMR reviewed. Pt is on day 4 of hospitalization for diverticulitis per H&P. Pt is medically stable to discharge today. Pt has cleared pt for home with HH services. SW informed Seth Vargas with [facility] of discharge and faxed in F2F and orders for RN and PT. SW updated pt and at bedside, both agreeable. Pt's family to provide transport home today. All updated and agreeable to plan. Assessment:pt who would benefit from HH. Plan:Pt to discharge home today via POV. F2F and orders provided to [facility] for RN and PT. [facility] can open with services on Friday10/21/16. All updated and agreeable to plan. NASRIN Cohn
--- NOTE | 2016-10-19 13:38 | NUR ---
Discharge Pt dc'd in WC with family and [employer] at 1216. All discharge instructions reviewed and pt verbalized instructions of medications and symptoms to monitor. All belongings with pt.
--- NOTE | 2016-10-20 15:49 | PCM.DC.MED ---
Discharge Summary Date of Service Oct 19, 2016 Dates of Hospitalization Date of Hospital Admission Oct 15, 2016 at 20:59 Date of Discharge: Oct 19, 2016 Providers: Admitting Physician: Victorino Watson MD Primary Care Physician: Obie Dior MD Attending Physician: Victorino Watson MD Diagnosis at Time of Discharge Diagnosis at Time of Discharge sepsis secondary to sigmoid diverticulitis #Diabetes mellitus type 2 #Prostate cancer #hypertension Procedures XRay, CTs & MRIs PROCEDURE: CT ABDOMEN AND PELVIS WITH CONTRAST ([facility]-[id number]) INDICATIONS: lower abdominal pain and tenderness TECHNIQUE: After the administration of intravenous contrast, 5 mm thick sections acquired from the diaphragm to the symphysis. 5 mm coronal and sagittal reformats were acquired. For radiation dose reduction, the following was used: automated exposure control, adjustment of mA and/or kV according to patient size. COMPARISON: [facility], CT, KUB - CT ([facility]), 11/03/2012, 11:03. [facility], CT, ABD/PELVIS W/CON ([facility]), 08/20/2006, 16:25. FINDINGS: Image quality: Excellent. ABDOMEN: Lung bases: Lung bases are clear. Heart size is normal. Solid organs: Liver and spleen are normal in size and enhancement. Gallbladder unremarkable. Biliary system is non dilated. Pancreas enhances normally. No adrenal nodules. Bilateral renal cysts, some of which demonstrate peripheral rim calcification. The largest measures 7.1 cm and the left kidney and demonstrates simple appearance. Bilateral less than 5 mm nephrolithiasis without evidence of urinary obstruction. There is a 9 mm left proximal ureteral calculus seen in the proximal left ureter on image 40 series 2. No ureteral dilatation is seen. Peritoneum and bowel: Bowel loops demonstrate normal wall thickness and caliber. No free fluid or air. Numerous scattered colonic diverticula with mild long segment wall thickening in the sigmoid colon on image 67 series 2. There is mild adjacent fat stranding. Rectum decompressed. No abscess. Appendix appears normal. Nodes and vessels: No retroperitoneal or mesenteric adenopathy by size criteria. 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 IVC unremarkable Miscellaneous: No ventral hernias. PELVIS: Genitourinary: Bladder wall thickness is normal. Miscellaneous: No inguinal hernias or adenopathy. Bones: No suspicious bony lesions. No vertebral body compression fractures. IMPRESSION: Acute sigmoid diverticulitis. No abscess. Bilateral renal cysts as before. 9 mm nonobstructing proximal left ureteral calculus. Nonobstructing bilateral nephrolithiasis. Normal appendix. Dictated by: Lavon Leigh M.D. on 10/15/2016 at 19:53 Approved by: Lavon Leigh M.D. on 10/15/2016 at 20:05 Brief History HPI obtained by 86 yr old male patient presented to the ER with complaint of abdominal pain and weakness. Patient reports that today after lunch with his family he began feeling weak and tired and went to take a nap, but was unable to rest due to abdominal pain and bloating. Patient states that he felt his abdomen was bloated and he needed to loosen his belt and was having abdominal pain. Patient reports that he attempted to go to the restroom twice, and had 2 very small bowel movements which neither relieved or worsened his abdominal pain. Patient denies any fever, nausea, chills, vomiting until he arrived in the ER. Patient states that while in the ER he began feeling feverish, nauseous and had worsening pain. Patient reports that he did feel quite weak while at home. Patient states that he was seen in the urgent care prior to coming to the ER. Patient reports lower quadrant abdominal pain that he describes a sharp without radiation. Patient also reports dysuria but denies any hematuria or increased frequency of urination. Patient denies any hematochezia or melena. Patient denies any chest pain, shortness of breath, headache or chills. Patient denies any recent history of constipation or diarrhea. States he has never experienced anything like this previously. While in the ER patient had a temperature 38.6, pulse 114, respiratory rate of 18, blood pressure 164/87, pulse ox 93 on room air. In the ER labs were drawn, patient had a WBC of 17.2 Hospital Course Patient is an 86-year-old male with a history of type II diabetes insulin- dependent and prostate cancer who presented to the ER with complaint of abdominal pain and weakness who is receiving treatment for acute sigmoid diverticulitis. acute problems Acute sepsis secondary to sigmoid diverticulitis, Meets criteria with WBC 17.2, T 38.9, HR 116, CT abdomen done in ER demonstrating "Acute sigmoid diverticulitis. No abscess." pt was started on Levaquin and Flagyl, IVF. clinically significantly improved, remained HD stable, afebrile, tolerated diet.All infectious w/u were negative till date, follow up stool PCR was negative, however, given initial sepsis, plan is to continue oral Levaquin/ Flayl for 14days course. Patient will require follow-up colonoscopy 6-8 weeks after resolution of this current episode. chronic, stable #Diabetes mellitus type 2 insulin dependent, controlled #Prostate cancer, Diagnosed in 02/2016, Urologist is Dr Byers, stable #hypertension, resumed home meds Exam Vital Signs (Last) Date Time Temp Pulse Resp B/P Pulse Ox O2 Delivery O2 Flow Rate FiO2 10/19/16 09:05 36.5 82 16 154/78 97 Room Air Exam NAD, comfortably laying down on the bed no JVD, MMM, no LAD RRR, nl s1, s2 no mrg CTAB, no w,c S,ND,mild LLQ tenderness,normoactive BS+ warm, no edema, pulses 2/2 Test 10/15/16 18:38 10/15/16 19:50 10/16/16 16:42 10/17/16 08:05 Hemoglobin A1c 6.6% (4.8-5.6) Urine Color Yellow (YELLOW) Urine Appearance Clear (CLEAR,HAZY) Urine pH 7.0 (5.0-8.0) Urine Specific [place] 1.020 (1.003-1.035) Urine Protein Tracemg/dL (NEG,TRACE) Urine Glucose (UA) Negativemg/dL (NEGATIVE) Urine Ketones Negativemg/dL (NEGATIVE) Urine Occult Blood Negative (NEGATIVE) Urine Nitrite Negative (NEGATIVE) Urine Bilirubin Negative (NEGATIVE) Urine Urobilinogen Normalmg/dL (NORMAL) Urine Leukocyte Esterase Negative (NEGATIVE) Urine RBC 0-2/hpf (0-2) Urine WBC 0-5/hpf (0-5) Urine Epithelial Cells None/hpf (NONE-MOD) Urine Crystals None seen (NONE SEEN) Urine Bacteria Few/hpf (NONE-FEW) Urine Hyaline Casts None/lpf (NONE) Urine Granular Casts None seen (NONE SEEN) Urine Waxy Casts None seen (NONE SEEN) Urine Red Blood Cell Casts None seen (NONE SEEN) Urine White Blood Cell Casts None seen (NONE SEEN) Urine Mucus None seen (None Seen) Urine Trichomonas None seen (NONE SEEN) Urine Yeast None (NONE SEEN) Urinalysis Comment None Urine Culture Reflexed Not indicated Hold Urine Received (Received) Lactic Acid Level 1.9mmol/L (0.4-2.0) Procalcitonin 1.65ng/mL (0.00-0.08) Test 10/19/16 05:50 White Blood Count 8.8th/mm3 (3.8-10.1) Red Blood Count 4.25mil/mm3 (4.40-5.80) Hemoglobin 12.5g/dL (13.8-17.2) Hematocrit 36.0% (41.0-50.0) Mean Corpuscular Volume 84.7fL (81-100) Mean Corpuscular Hemoglobin 29.4pg (27.0-35.0) Mean Corpuscular Hemoglobin Concent 34.7% (32.0-37.0) Red Cell Distribution Width 13.8% (12.3-15.4) Platelet Count 185bil/L (150-400) Neutrophils (%) (Auto) 71.7% (40-74) Lymphocytes (%) (Auto) 18.2% (14-46) Monocytes (%) (Auto) 5.8% (4-12) Eosinophils (%) (Auto) 3.9% (0-5) Basophils (%) (Auto) 0.1% (0-3) Sodium Level 140mEq/L (134-144) Potassium Level 4.0mEq/L (3.5-5.2) Chloride Level 106mEq/L (97-108) Carbon Dioxide Level 20mmol/L (18-29) Blood Urea Nitrogen 19mg/dL (8-27) Creatinine 1.08mg/dL (0.76-1.27) Estimat Glomerular Filtration Rate 69mL/min (>59) Glucose Level 155mg/dL (60-99) Calcium Level 8.3mg/dL (8.5-10.1) Phosphorus Level 2.4mg/dL (2.5-4.9) Magnesium Level 1.9mg/dL (1.6-2.6) Total Bilirubin 0.2mg/dL (0.0-1.2) Aspartate Amino Transf (AST/SGOT) 21U/L (0-50) Alanine Aminotransferase (ALT/SGPT) 10U/L (0-44) Alkaline Phosphatase 59U/L (25-160) Total Protein 6.4g/dL (6.4-8.4) Albumin 3.5g/dL (3.4-5.0) Discharge Medications Discharge Medications Allopurinol (Allopurinol) 100 Mg Tablet 100 MG PO DAILY (Reported) Amlodipine (Amlodipine) 5 Mg Tablet 5 MG PO DAILY Prescribed by: MARIETTA MORENO MD Aspirin (Aspirin) 81 Mg Tablet 81 MG PO DAILY (Reported) Calcium Citrate/Vitamin D3 (Calcitrate + Vit D Caplet) 1 Each Tablet 1 EACH PO DAILY (Reported) Cholecalciferol (Vitamin D3) (Vitamin D3) 3,000 Unit Tablet 3,000 UNIT PO DAILY (Reported) Finasteride (Finasteride) 5 Mg Tablet 5 MG PO DAILY (Reported) Insulin Glargine (Lantus U100 Solostar Insulin Pen) 100 Unit/1 Ml Insuln.pen 5- 10 UNITS SUBQ HS (Reported) Lactobacillus Acidophilus (Probiotic) 1 Each Capsule 1 EACH PO DAILY (Reported) Levofloxacin (Levaquin) 500 Mg Tablet 500 MG PO DAILY Prescribed by: NANCY MCDANIEL MD Levothyroxine (Levothyroxine) 88 Mcg Tablet 88 MCG PO DAILY (Reported) Metronidazole (Flagyl) 500 Mg Tablet 500 MG PO Q8H Prescribed by: NANCY MCDANIEL MD Multivitamin (Multi Vitamin Daily) 1 Each Tablet 1 EACH PO DAILY (Reported) Potassium Citrate ER (Potassium Citrate ER) 10 Meq Tablet 30 MEQ PO BID ( Reported) Pravastatin (Pravastatin) 10 Mg Tablet 10 MG PO HS (Reported) Probenecid (Probenecid) 500 Mg Tablet 500 MG PO BID (Reported) As needed Insulin Lispro (HumaLOG U100 Insulin Pen) 100 Unit/1 Ml Insuln.pen 0-5 UNITS SUBQ TIDWM PRN PRN sliding scale (Reported) Additional med instructions take Levofloxacin, metronidazole for 10more days Followup Plan Disposition: home Follow-up plan Please follow up with your doctor in 2weeks Discharge Diet: Other Discharge Activity: No restrictions Patient Instructions You were hospitalized with diverticulitis, treated with antibiotics, responded well. Please follow medicine instruction as above Please monitor stools, try stool softners if your are constipated Follow-up Provider: Obie Dior MD Follow-up with PCP in: 2 weeks Time spent 65min Nancy Mcdaniel MD Oct 19, 2016 15:57
== END 2016-10-19 12:15 | disposition home health service (06) | DRG 872 ==
LOC: SED 17:25 → MOC 20:59
PROVIDERS: ADMIT Hospitalist; ATTEND Hospitalist
DX: A41.9 Sepsis, unspecified organism (principal); K57.32 Diverticulitis of large intestine without perforation or abscess without bleeding; I10 Essential (primary) hypertension; M10.9 Gout, unspecified; Z66 Do not resuscitate; E11.9 Type 2 diabetes mellitus without complications; C80.1 Malignant (primary) neoplasm, unspecified; G62.9 Polyneuropathy, unspecified; E78.5 Hyperlipidemia, unspecified; C61 Malignant neoplasm of prostate; R19.7 Diarrhea, unspecified; Z86.73 Personal history of transient ischemic attack (TIA), and cerebral infarction without residual deficits; Z79.4 Long term (current) use of insulin; Z87.891 Personal history of nicotine dependence; Z79.82 Long term (current) use of aspirin